=== PATIENT | female | born 1995 | race Caucasian/White ===

== ENCOUNTER 2022-11-11 10:25 | Emergency (ER) | payer OTHER ==
[2022-11-11] MEDS ORDERED: BACITRACIN ZINC OINT 1 PACKET TOP STA (11:06)
--- NOTE | 2022-11-11 11:08 | ED Physician Documentation ---
History of Present Illness - Stated complaint Stated Complaint: FOREHEAD LAC - Chief complaint Chief Complaint: Trauma Hd/Nk - Additonal information Additional information: 27-year-old female presents emergency department for evaluation of a superficial forehead laceration. She was playing with her son at home near the stair railing when she stood up striking her head on the sharp edge of the railing. She did not lose consciousness but does endorse some dizziness. She has a superficial mid forehead laceration measuring about 1 cm that is well approximated. Tetanus is up-to-date. Reports headache is starting to resolve. Review of Systems Constitutional: denies: Fever Skin: reports: Laceration (s) Neurologic: reports: Headache, Head injury PD PAST MEDICAL HISTORY - Present Medications Home Medications: Ambulatory Orders Medication Instructions Recorded Confirmed Methylphenidate HCl [Concerta] 54 mg PO DAILY 11/11/22 11/11/22 - Allergies Allergies/Adverse Reactions: Allergies Allergy/AdvReac Type Severity Reaction Status Date / Time No Known Drug Allergies Allergy Verified 11/11/22 10:43 PD ED PE NORMAL - General General: Alert and oriented X 3, No acute distress - HEENT HEENT: Ears normal, Pharynx benign, Other (Negative for hemotympanum, jordan sign, raccoon eyes). No: Atraumatic (Superficial midline vertical forehead laceration measuring 1 cm. 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 There was no loss of consciousness. Patient is not anticoagulated. She does endorse mild headache and some dizziness. Clinically on exam the laceration is superficial and would not benefit from primary closure with glue or sutures as it is already well approximated. Patient's tetanus is up-to-date. Discussed routine wound care with bacitracin daily. Clinically I have low suspicion for intercerebral trauma or skull fracture. No secondary findings such as raccoon eyes, jordan sign or hemotympanums. She is discharged home in stable condition. Likely has mild concussion. Discussed the usual emergent return precautions Departure - Departure Disposition: 01 Home, Self Care Clinical Impression: Closed head injury Qualifiers: Encounter type: initial encounter Qualified Code(s): S09.90XA - Unspecified injury of head, initial encounter Forehead laceration Qualifiers: Encounter type: initial encounter Qualified Code(s): S01.81XA - Laceration without foreign body of other part of head, initial encounter Concussion Qualifiers: Encounter type: initial encounter Loss of consciousness presence/duration: without LOC Qualified Code(s): S06.0X0A - Concussion without loss of consciousness, initial encounter Condition: Stable Record reviewed to determine appropriate education?: Yes Instructions: ED Head Injury Closed Comments: Kendal you struck your head on the sharp edge of a stair railing and you have a superficial laceration to your mid forehead. At this time it is well approximated and I do not feel that you did have any cosmetic benefit from either suturing or gluing at this time. In general I recommend that you simply wash it daily with warm soap and water and apply antibiotic ointment such as bacitracin or triple antibiotic. The mechanism for which you hit your head is low risk for developing features such as intercerebral hemorrhage or having developed a skull fracture. Over the next several days it is okay to take [id number] Tylenol or ibuprofen for any headache or discomfort you have. If you develop any sudden severe headache, have uncontrolled vomiting, are extremely lethargic or have slurred speech, facial droop or arm or leg weakness then you should return immediately to the emergency department.
[2022-11-11 11:28] VITALS: BP 108/66
== END 2022-11-11 11:19 | disposition home or self-care (01) ==
LOC: ED 10:25
DX: S06.0X0A Concussion without loss of consciousness, initial encounter (principal); S01.81XA Laceration without foreign body of other part of head, initial encounter; W22.09XA Striking against other stationary object, initial encounter; Y92.009 Unspecified place in unspecified non-institutional (private) residence as the place of occurrence of the external cause
CPT/HCPCS: 99282; 99283; A9270

== ENCOUNTER 2023-03-02 11:28 | Emergency (ER) | payer OTHER ==
[2023-03-02 11:42] VITALS: O2SAT 100
--- NOTE | 2023-03-02 11:47 | ED Physician Documentation ---
History of Present Illness - Stated complaint Stated Complaint: ,CRAMPING, - Chief complaint Chief Complaint: Abd Pain - History obtained from History obtained from: Patient - History of Present Illness Timing: Today Pain level max: 4 Pain level now: 3 - Additonal information Additional information: 27 year old female, . approx 5 weeks , presents with lower abd cramping and spotting this am. Has been taking Zofran for -induced nausea. No fevers. No chills. No congestion. Nothing makes it better or worse. No reports of trauma. No vaginal discharge. 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 - Present Medications Home Medications: Ambulatory Orders Medication Instructions Recorded Confirmed Methylphenidate HCl [Concerta] 54 mg PO DAILY 11/11/22 11/11/22 - Allergies Allergies/Adverse Reactions: Allergies Allergy/AdvReac Type Severity Reaction Status Date / Time No Known Drug Allergies Allergy Verified 11/11/22 10:43 - Social History Does the pt smoke?: No Smoking Status: Never smoker - Immunizations Immunizations are current?: Yes PD ED PE NORMAL - Vitals Vital signs reviewed: Yes - General General: Alert and oriented X 3, No acute distress - HEENT HEENT: PERRL, Moist mucous membranes - Neck Neck: Supple, no meningeal sign - Cardiac Cardiac: RRR, Strong equal pulses - Respiratory Respiratory: No respiratory distress, Clear bilaterally - Abdomen Abdomen: Soft, Non tender, Non distended - Derm Derm: Warm and dry - Extremities Extremities: No edema - Neuro Neuro: Alert and oriented X 3 - Psych Psych: Normal mood, Normal affect Results - Vitals Vitals: Vital Signs - 24 hr 03/02/23 03/02/23 11:32 13:34 Temperature 36.7 C 36.6 C Heart Rate 84 80 Respiratory 20 16 Rate Blood Pressure 117/70 116/70 O2 Saturation 100 100 Oxygen O2 Source Room air - Labs Labs: Laboratory Tests 03/02/23 03/02/23 03/02/23 11:43 11:43 13:15 WBC 11.1 H RBC 4.69 Hgb 13.4 Hct 39.1 MCV 83.4 MCH 28.6 MCHC 34.3 RDW 13.2 Plt Count 301 MPV 9.3 Neut # (Auto) 7.8 H Lymph # (Auto) 2.8 [place] # (Auto) 0.5 Eos # (Auto) 0.1 Baso # (Auto) 0.0 Absolute Nucleated RBC 0.00 Nucleated RBC % 0.0 Sodium 135 Potassium 3.8 Chloride 104 Carbon Dioxide 25 Anion Gap 6.0 BUN 12 Creatinine 1.0 Estimated GFR (MDRD) 66 L Glucose 98 Calcium 9.2 Total Bilirubin 0.3 AST 11 ALT 12 Alkaline Phosphatase 58 Total Protein 6.9 Albumin 4.2 Globulin 2.7 Albumin/Globulin Ratio 1.6 Lipase 20 Beta HCG, Quant 17188.7 Urine Color YELLOW Urine Clarity CLEAR Urine pH 6.0 Ur Specific [place] <=1.005 Urine Protein NEGATIVE Urine Glucose (UA) NEGATIVE Urine Ketones NEGATIVE Urine Occult Blood NEGATIVE Urine Nitrite NEGATIVE Urine Bilirubin NEGATIVE Urine Urobilinogen 0.2 (NORMAL) Ur Leukocyte Esterase NEGATIVE Ur Microscopic Review NOT INDICATED Urine Culture Comments NOT INDICATED - Rads (name of study) OB ultrasound Relevant Findings:: Final report received, See rad report PD Medical Decision Making - ED course Complexity details: reviewed results, re-evaluated patient, crystal beverly d/w patient, d/w family ED course: Ultrasound is consistent with a 5-week 5-day intrauterine , no evidence of ectopic. Ectopic precautions however were given at bedside given the early gestational age. We will have her follow-up with her PCP/OB for repeat hCG in 3 days. No heavy bleeding here. No other significant lab abnormalities. No UTI. Normal blood pressure. We will treat as threatened . Patient counseled regarding signs and symptoms for which I believe and urgent re- evaluation would be necessary. Patient with good understanding of and agreement to plan and is comfortable going home at this time This document was made in part using voice recognition software. While efforts are made to proofread this document, sound alike and grammatical errors may occur. Departure - Departure Disposition: 01 Home, Self Care Clinical Impression: Bleeding in early Condition: Good Instructions: ED Miscarriage Poss Follow-Up: your,doctor in 3 days [Other] Comments: You were seen today for a possible miscarriage, your ultrasound shows that you are approximately 5 weeks and 5 days . You are quantitative hCG level is 10,922 today. You should have a repeat hCG level in approximately 3 days. If the level is increasing, this would be consistent with a normal , if it is decreasing would be consistent with a miscarriage. Please follow-up with your doctor for further care, return for increasing pain bleeding or other new or worrisome symptoms. Forms: PCP List Discharge Date/Time: 03/02/23 13:54
[2023-03-02 11:57] LABS: BASOPHILS % (AUTO) 0.2 %; EOSINOPHILS # (AUTO) 0.1 10^3/uL (0.0-0.7); EOSINOPHILS % (AUTO) 0.4 %; HCT - HEMATOCRIT 39.1 % (37.0-47.0); HGB - HEMOGLOBIN 13.4 g/dL (12.0-16.0); LYMPHOCYTES # (AUTO) 2.8 10^3/uL (1.5-3.5); LYMPHOCYTES % (AUTO) 24.8 %; MEAN CORPUSCULAR HEMOGLOBIN 28.6 pg (27.0-31.0); MEAN CORPUSCULAR HGB CONC 34.3 g/dL (32.0-36.0); MEAN CORPUSCULAR VOLUME 83.4 fL (81.0-99.0); MEAN PLATELET VOLUME 9.3 fL (7.9-10.8); MONOCYTES # (AUTO) 0.5 10^3/uL (0.0-1.0); MONOCYTES % (AUTO) 4.3 %; NEUTROPHILS # (AUTO) 7.8 10^3/uL (1.5-6.6); NEUTROPHILS % (AUTO) 69.9 %; PLT - PLATELET COUNT 301 10^3/uL (130-450); RED BLOOD COUNT 4.69 10^6/uL (4.20-5.40); RED CELL DISTRIBUTION WIDTH 13.2 % (12.0-15.0); WHITE BLOOD COUNT 11.1 x10^3/uL (4.8-10.8)
[2023-03-02 12:10] LABS: ALBUMIN 4.2 g/dL (3.2-5.5); ALBUMIN/GLOBULIN RATIO 1.6 (1.0-2.2); BILIRUBIN,TOTAL 0.3 mg/dL (0.2-1.0); CALCIUM 9.2 mg/dL (8.5-10.3); POTASSIUM 3.8 mmol/L (3.5-4.5); TOTAL PROTEIN 6.9 g/dL (6.4-8.9)
--- NOTE | 2023-03-02 13:15 | Ultrasound Report ---
PROCEDURE: OB First Trimester w/TV INDICATIONS: pelvic pain, vag bleed, 5 weeks preg OUTSIDE/PRIOR DATING DATA: Last menstrual period (LMP): 01/25/2023. First dating scan (date and location): Today. TECHNIQUE: Real-time scanning was performed of the fetus and maternal pelvic organs, with image documentation. Endovaginal scanning was also performed to better visualize the fetus and maternal ovaries. COMPARISON: None. FINDINGS: Intrauterine gestational sac present. Embryo: Not well delineated. Mean gestational sac diameter measures 0.88cm consistent with 5 weeks 5 days Heart rate: Not identified . Other: No perigestational fluid collection. Measurement variability in dating: +/- 4 weeks by LMP, +/- 7 days by mean sac diameter (use before 6 weeks gestation if crown-rump length not able to be measured), +/- 5 days by crown-rump length (6-12 weeks gestation). Maternal organs: Ovaries appear within normal limits. IMPRESSION: Early intrauterine with a mean gestational sac measurement consistent with 5 weeks 5 days. Reviewed by: Nasim Ordonez MD on 03/02/2023 12:13 PM APOLINAR Approved by: Nasim Ordonez MD on 03/02/2023 12:13 PM APOLINAR Station ID: [id number]
[2023-03-02 13:30] LABS: BILIRUBIN,URINE NEGATIVE (NEGATIVE); GLUCOSE, URINE (UA) NEGATIVE (NEGATIVE); KETONES,URINE (UA) NEGATIVE (NEGATIVE); LEUKOCYTE ESTERASE, URINE NEGATIVE (NEGATIVE); NITRITE,URINE NEGATIVE (NEGATIVE); OCCULT BLOOD,URINE NEGATIVE (NEGATIVE); PROTEIN,URINE NEGATIVE (NEGATIVE); UROBILINOGEN,URINE 0.2 (NORMAL) E.U./dL (NORMAL)
[2023-03-02 13:40] LABS: CLARITY,URINE CLEAR (CLEAR)
[2023-03-02 13:54] VITALS: BP 116/70
== END 2023-03-02 13:54 | disposition home or self-care (01) ==
LOC: ED 11:28
DX: O20.0 Threatened abortion (principal); Z3A.01 Less than 8 weeks gestation of pregnancy
CPT/HCPCS: 36415; 80053; 81001; 81003; 83690; 84702; 85025; 87086; 99283; 99284